=== PATIENT | male | born 1950 | race Hispanic/Latino ===

== ENCOUNTER → 2023-07-10 | Outpatient (CLI) | payer OTHER ==
[2023-07-10 22:00] VITALS: PULSE 60; RESP 14
[2023-07-10 22:30] VITALS: PULSE 52; RESP 14
[2023-07-10 23:00] VITALS: PULSE 50; RESP 12
[2023-07-10 23:30] VITALS: PULSE 52; RESP 12
[2023-07-11] VITALS (10 sets, daily range): PULSE 50–58; RESP 4–14
== END | disposition home or self-care (01) ==
LOC: SLP 20:11
PROVIDERS: ATTEND Internal Medicine
DX: G47.33 Obstructive sleep apnea (adult) (pediatric) (principal); R06.83 Snoring; G89.29 Other chronic pain
CPT/HCPCS: 95810

== ENCOUNTER → 2023-07-15 | Outpatient (CLI) | payer OTHER ==
[2023-07-15 22:19] VITALS: PULSE 50; RESP 14
[2023-07-15 23:00] VITALS: PULSE 58; RESP 16
[2023-07-15 23:30] VITALS: PULSE 54; RESP 14
[2023-07-16] VITALS (11 sets, daily range): PULSE 48–60; RESP 6–16
== END | disposition home or self-care (01) ==
LOC: SLP 20:03
PROVIDERS: ATTEND Internal Medicine
DX: G47.33 Obstructive sleep apnea (adult) (pediatric) (principal); R06.83 Snoring
CPT/HCPCS: 95811

== ENCOUNTER → 2024-04-13 | Outpatient (CLI) | payer OTHER ==
[2024-04-13 12:32] LABS: ALBUMIN 3.9 g/dL (3.5-5.0); BILIRUBIN,TOTAL 0.5 mg/dL (0.2-1.0); CREATININE 1.3 mg/dL (0.5-1.3); POTASSIUM 4.2 mmol/L (3.5-5.1); TOTAL PROTEIN, SERUM 6.8 g/dL (6.0-8.3)
== END | disposition home or self-care (01) ==
LOC: LAB 10:34
PROVIDERS: ATTEND Student in an Organized Health Care Education/Training Program
DX: R07.9 Chest pain, unspecified (principal)
CPT/HCPCS: 36415; 80053

== ENCOUNTER → 2024-04-16 | Outpatient (CLI) | payer OTHER ==
[~2024-04-16] MED LIST: IOHEXOL 350 MG/ML 100ML INFUS..BTL IV ONE
--- NOTE | 2024-04-16 09:26 | HMCIMG ---
CT OF THE CHEST WITH CONTRAST- CT Cardiac Angio co-interpretation This is done as part of the CT cardiac angiogram study. The interpretation of the coronary arteries will be done by skin therapist in a separate report. History: over-read Comparison: none CT Dose Index (CTDI): 77.90 mGy Dose Length Product (DLP): 493.40 total mGy PROTOCOL: Examination is done at 2.5 millimeter volumetric acquisition after contrast administration with Isovue 370, 100 cc IV, without complications. Photography is done at 5 millimeter thick intervals for the thorax. The examination begins above the heart and therefore the lung apices are incompletely included. The rest of the left lung is included but the right lung is only included up to its middle third. The periphery of the right lung is not included in the study. FINDINGS: The visualized part of the airway is preserved. The bony and soft tissue structures of the chest wall are unremarkable. The aorta is unremarkable. No mediastinal lymphadenopathy is seen. The lung windows demonstrate no worrisome pulmonary nodules, masses or infiltrates. There is no evidence of pulmonary embolism in the visualized lung segments. The upper abdominal views are unremarkable. Impression: No significant abnormalities identified.
== END | disposition home or self-care (01) ==
LOC: RAH 07:17
PROVIDERS: ATTEND Student in an Organized Health Care Education/Training Program
DX: I23.6 Thrombosis of atrium, auricular appendage, and ventricle as current complications following acute myocardial infarction (principal)
CPT/HCPCS: 75574; Q9967

== ENCOUNTER → 2024-08-07 | Outpatient (CLI) | payer OTHER | END | disposition home or self-care (01) | LOC: SHCH 12:30 | PROVIDERS: ATTEND Student in an Organized Health Care Education/Training Program | DX: I35.1 Nonrheumatic aortic (valve) insufficiency (principal); I11.9 Hypertensive heart disease without heart failure | CPT/HCPCS: 93306 ==